=== PATIENT | female | born 1975 | race Caucasian/White ===

== ENCOUNTER 2018-11-25 10:26 | Emergency (ER) | payer SELFPAY ==
[2018-11-25] MEDS ORDERED: HYDROCODONE/CHLORPHEN 5 ML/OSYR ONE (10:48)
--- NOTE | 2018-11-25 11:06 | ER ---
Nurse's Notes [facility] Name: Iraida Chaudhary Age: 43 yrs Sex: Female : 1975 Arrival Date: 11/25/2018 Time: 10:28 Bed 12 Private MD: None, None Diagnosis: Acute upper respiratory infection, unspecified Presentation: 11/25 10:31 Presenting complaint: Patient states: cough, CACERES, congestion for one day. Transition of la1 care: patient was not received from another setting of care. Onset of symptoms was November 25, 2018. Risk Assessment: Do you want to hurt yourself or someone else? Patient reports no desire to harm self or others. Initial Sepsis Screen: Does the patient meet any 2 criteria? No. Patient's initial sepsis screen is negative. Does the patient have a suspected source of infection? No. Patient's initial sepsis screen is negative. Care prior to arrival: None. 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 - Social history:: Smoking status: Patient/guardian denies using tobacco. - Ebola Screening: : No symptoms or risks identified at this time. Screenin:54 Abuse screen: Denies threats or abuse. Nutritional screening: No deficits noted. la1 Tuberculosis screening: No symptoms or risk factors identified. Fall Risk None identified. Assessment: 10:53 General: Appears ill, Behavior is calm, cooperative. Pain: Complains of pain in la1 forehead. Neuro: Level of Consciousness is awake, alert, obeys commands, Oriented to person, place, time, situation. Cardiovascular: Capillary refill < 3 seconds Patient's skin is warm and dry. Respiratory: Airway is patent Respiratory effort is even, unlabored, Respiratory pattern is regular, symmetrical, Breath sounds are clear. Respiratory: Reports cough that is non-productive, persistent. GI: No signs and/or symptoms were reported involving the gastrointestinal system. : No signs and/or symptoms were reported regarding the genitourinary system. Vital Signs: 10:32 BP 130 / 80; Pulse 105; Resp 18; Temp 99.3; Pulse Ox 95% on R/A; Weight 108.86 kg; la1 Height 5 ft. 4 in. (162.56 cm); 10:32 Body Mass Index 41.20 (108.86 kg, 162.56 cm) la1 ED Course: 10:28 Patient arrived in ED. mr 10:29 None, None is Private Physician. mr 10:29 Shy Jaquez FNP-C is [facility]. kb 10:29 Jonny Schaffer MD is Attending Physician. kb 10:31 Triage completed. la1 10:32 Arm band placed on left wrist. la1 10:36 Tiffanie Lopez, RN is Primary Nurse. iw 10:54 Call light in reach. la1 11:14 No provider procedures requiring assistance completed. Patient did not have IV access iw during this emergency room visit. Administered Medications: 10:39 Drug: Tussionex Pennkinetic ER 5 ml Route: PO; iw Outcome: 11:05 Discharge ordered by . kb 11:14 Discharged to home ambulatory, with family. iw 11:14 Condition: good 11:14 Discharge instructions given to patient, Instructed on discharge instructions, follow up and referral plans. medication usage, Demonstrated understanding of instructions, follow-up care, medications, Prescriptions given X 1. 11:15 Patient left the ED. iw Signatures: Shy Jaquez FNP-C FNP-Ckb Rivera, Mary Tiffanie Lopez, RN RN iw Renan Roman RN RN la1
--- NOTE | 2018-11-25 11:07 | EDPHYS ---
Physician Documentation [facility] Name: Iraida Chaudhary Age: 43 yrs Sex: Female : 1975 Arrival Date: 11/25/2018 Time: 10:28 Bed 12 Private MD: None, None ED Physician Jonny Schaffer HPI: 11/25 10:36 This 43 yrs old Female presents to ER via Ambulatory with complaints of Flu kb Symptoms. 10:35 The patient has not experienced similar symptoms in the past, but co-worker has similar kb symptoms. The patient has not recently seen a physician. 10:36 The patient or guardian reports cough, that is intermittent, described as moderate, kb with no sputum, flu symptoms, arthralgias, myalgias, no appetite. Onset: The symptoms/episode began/occurred yesterday. Severity of symptoms: At their worst the symptoms were moderate, in the emergency department the symptoms are unchanged. Modifying factors: The symptoms are alleviated by nothing, the symptoms are aggravated by nothing. Associated signs and symptoms: The patient has no apparent associated signs or symptoms. 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 - Social history:: Smoking status: Patient/guardian denies using tobacco. - Ebola Screening: : No symptoms or risks identified at this time. ROS: 10:34 ENT: Negative for injury, pain, and discharge, Neck: Negative for injury, pain, and kb swelling, Cardiovascular: Negative for chest pain, palpitations, and edema, Abdomen/GI: Negative for abdominal pain, nausea, vomiting, diarrhea, and constipation, Back: Negative for injury and pain, : Negative for injury, bleeding, discharge, and swelling, MS/Extremity: Negative for injury and deformity, Skin: Negative for injury, rash, and discoloration, Neuro: Negative for headache, weakness, numbness, tingling, and seizure. 10:34 Constitutional: Positive for body aches, malaise, Negative for chills, fatigue, fever, poor PO intake, weight loss. 10:34 Respiratory: Positive for cough, with no reported sputum, Negative for dyspnea on exertion, hemoptysis, orthopnea, pleurisy, shortness of breath, sputum production, wheezing. Exam: 10:35 Constitutional: This is a well developed, well nourished patient who is awake, alert, kb and in no acute distress. Head/Face: Normocephalic, atraumatic. ENT: Nares patent. No nasal discharge, no septal abnormalities noted. Tympanic membranes are normal and external auditory canals are clear. Oropharynx with no redness, swelling, or masses, exudates, or evidence of obstruction, uvula midline. Mucous membranes moist. Neck: Trachea midline, no thyromegaly or masses palpated, and no cervical lymphadenopathy. Supple, full range of motion without nuchal rigidity, or vertebral point tenderness. No Meningismus. Chest/axilla: Normal chest wall appearance and motion. Nontender with no deformity. No lesions are appreciated. Cardiovascular: Regular rate and rhythm with a normal S1 and S2. No gallops, murmurs, or rubs. Normal PMI, no JVD. No pulse deficits. Respiratory: Lungs have equal breath sounds bilaterally, clear to auscultation and percussion. No rales, rhonchi or wheezes noted. No increased work of breathing, no retractions or nasal flaring. Abdomen/GI: Soft, non-tender, with normal bowel sounds. No distension or tympany. No guarding or rebound. No evidence of tenderness throughout. Skin: Warm, dry with normal turgor. Normal color with no rashes, no lesions, and no evidence of cellulitis. MS/ Extremity: Pulses equal, no cyanosis. Neurovascular intact. Full, normal range of motion. Neuro: Awake and alert, GCS 15, oriented to person, place, time, and situation. Cranial nerves II-XII grossly intact. Motor strength 5/5 in all extremities. Sensory grossly intact. Cerebellar exam normal. Normal gait. Vital Signs: 10:32 BP 130 / 80; Pulse 105; Resp 18; Temp 99.3; Pulse Ox 95% on R/A; Weight 108.86 kg; la1 Height 5 ft. 4 in. (162.56 cm); 10:32 Body Mass Index 41.20 (108.86 kg, 162.56 cm) la1 MDM: 10:29 Patient medically screened. kb 10:35 Data reviewed: vital signs, nurses notes. Data interpreted: Pulse oximetry: is 95 %. kb 11:01 Counseling: I had a detailed discussion with the patient and/or guardian regarding: the kb historical points, exam findings, and any diagnostic results supporting the discharge/admit diagnosis, lab results, the need for outpatient follow up, a family practitioner, to return to the emergency department if symptoms worsen or persist or if there are any questions or concerns that arise at home. 11/25 10:32 Order name: Strep; Complete Time: 11:00 la11/25 10:32 Order name: Flu; Complete Time: 11: la11/25 10:51 Order name: Throat Culture EDMS Administered Medications: 10:39 Drug: Tussionex Pennkinetic ER 5 ml Route: PO; iw Disposition: 18:49 Co-signature as Attending Physician, Jonny Schaffer MD Available for consultation at ps1 all times . Disposition: 11/25/18 11:05 Discharged to Home. Impression: Acute upper respiratory infection, unspecified. - Condition is Stable. - Discharge Instructions: Upper Respiratory Infection, Adult, [id number]. - Prescriptions for Albuterol Sulfate 90 mcg/actuation - inhale 1-2 puff by INHALATION route every 4-6 hours; 1 Inhaler. - Medication Reconciliation Form, Thank You Letter, Antibiotic Education, Prescription Opioid Use, Work release form form. - Follow up: Emergency Department; When: As needed; Reason: Worsening of condition. Follow up: Private Physician; When: 2 - 3 days; Reason: Recheck today's complaints, Continuance of care, Re-evaluation by your physician. Signatures: Dispatcher [employer] EDAR Shy Jaquez, DESTINEY-C DIAMOND DRILLER HELPER-Tiffanie Matamoros RN RN iw Attema, Lee, RN RN la1 Jonny Schaffer MD MD ps1 Corrections: (The following items were deleted from the chart) 11:15 11:05 11/25/2018 11:05 Discharged to Home. Impression: Acute upper respiratory iw infection, unspecified. Condition is Stable. Discharge Instructions: Upper Respiratory Infection, Adult, [id number]. Prescriptions for Tessalon Perles 100 mg Oral Capsule - take 1 capsule by ORAL route every 8 hours As needed; 15 capsule, Albuterol Sulfate 90 mcg/actuation - inhale 1-2 puff by INHALATION route every 4-6 hours; 1 Inhaler. and Forms are Medication Reconciliation Form, Thank You Letter, Antibiotic Education, Prescription Opioid Use. Follow up: Emergency Department; When: As needed; Reason: Worsening of condition. Follow up: Private Physician; When: 2 - 3 days; Reason: Recheck today's complaints, Continuance of care, Re-evaluation by your physician. kb
== END 2018-11-25 11:15 | disposition home or self-care (01) ==
LOC: ER 10:26
DX: J06.9 Acute upper respiratory infection, unspecified (principal)
CPT/HCPCS: 87070; 87081; 87804; 99283

== ENCOUNTER 2021-05-22 12:05 | Emergency (ER) | payer OTHER ==
--- OUTSIDE RECORDS SUMMARY | 2021-05-22 12:10 | XMS REPORT | Continuity of Care Document ---
:1975 Author Organization [facility] t Address [address] [place] [address] Care Team Providers Name Role Phone Doctor Unassigned, Name Attending Clinician Unavailable Ran FALL, L Attending Clinician Luis DOHERTY, K Attending Clinician Unavailable Jimy Rdz PT Attending Clinician Unavailable Payers Payer Name Policy Type Policy Number Effective Date Expiration Date Sriram king [facility] [id number] 2018 2028 [facility] SELF-PAYSELF- 00:00:00 23:59:59 PAY [id number] [id number] [place] [address] Problems Condition Condition Condition Status Onset Resolution Last Treating Co mments Source Name Details Category Date Date Treatment Clinician Date Prediabete Prediabete Disease Active H arris s s 04-20 Health 00:00: 00 Vitamin D Vitamin D Disease Active Marcos ris deficiency deficiency 04-20 He alth 00:00: 00 History of History of Disease Active Overview : [place] [facility] py py 00:00: g of this 00 note might be different from the original. Carbo/tax olCycle 1 06/23/16 Completed , had reaction during Taxol. Needs pre-chemo oral steroids for future chemosCyc le 2 07/14/16 Completed , no reaction reportedC ycle 3 08/04/16 completed [ ] Cycle 4 08/25/16 completed Cycle 5 09/15/16 completed Cycle 6 10/06/16 completed [ ] CHANDNI on imaging. Start Surveilla nce. Stage II Stage II Disease Active Overview: [place] endometrio endometrio 05-31 [facility] id ovarian id ovarian 00:00: g of this cancer cancer 00 note might be different from the original. 05/11/16: exlap, GINO, BSO, PPALND, omentecto my, staging bx 6 Tumor Board: stage IIA, Figo Stage 2. High grade ovarian carcinoma involving ovary, uterus, cervix, 11 negative lymph nodes. Omentum negative. Recommend : Taxol and Carbo. Pelvic Pelvic Disease Active [place] pain in pain in 6-13 Health female female 00:00: 00 Allergies, Adverse Reactions, Alerts Allergy Allergy Status Severity Reaction(s) Onset Inactive Treating Comm ents Source Name Type Date Date Clinician Terbinaf Propensi Active Patient Mago urrutia ty to 7-17 [facility] Health adverse 00:00: she reaction 00 cannot s to move drug after receiving lamisil. Lamisil Adverse Active can't walk [facility] Family History Family Member Diagnosis Comments Start Date Stop Date Source Natural mother Cancer [facility] Natural mother Other [facility] Natural mother Ovarian cancer [facility] Other Breast cancer [place] [facility] Natural sister Heart [facility] Natural brother Obesity [facility] Natural father Diabetes [facility] Natural father Hypertension [facility] Maternal grandfather Prostate cancer [facility] Social History Social Habit Start Date Stop Date Quantity Comments Source Sex Assigned At [facility] Tobacco use and 2018-07-07 2018-07-07 Former user [facility] exposure 00:00:00 00:00:00 Alcohol intake 2018-07-07 2018-07-07 Current [facility] 00:00:00 00:00:00 non-drinker of alcohol (finding) History of tobacco 2004-10-22 Current smoker [facility] use 00:00:00 Smoking Status Start Date Stop Date Source Former smoker 2018-07-07 00:00:00 2018-07-07 00:00:00 [facility] Medications Ordered Filled Start Stop Current Ordering Indication Dosage Frequency Signature Comments Components Source Medication Medication Date Date Medication? Clinician (SIG) Name Name Augmentin Augmentin 2020- No Ramona [address] [facility] 9-16 09-26 [facility] Glucose Glucose Yes Ramona as [facility] testing testing 8-12 [facility] directed [facility] - strips strips 00:00: (dispense Chet minda 00 testing l strips Outpati formulary ent to Clinics insurance) Metformin Metformin Yes Ramona [address] [facility] HCl HCl 8-12 Millender with a [facility] - 00:[facility]: meal [facility] 00 [facility] Blood Blood 2019- Yes Ramona as [facility] Glucose Glucose 8-12 [facility] directed [facility] - Monitor Monitor 00:00: (DISPENSE Me moria 00 BLOOD l GLUCOSE Outpati MONITOR ent FORMULARY Clinics TO INSURANCE) Lancets Lancets Yes Ramona as [facility] 8-12 [facility] directed [facility] - 00:[facility]: (dispense [facility] 00 lancets l formulary Outpati to ent insurance) Clinics Rosuvastati Rosuvastati Yes Ramona [address] [facility] n Calcium n Calcium 8-01 Millender in evening [facility] FLUoxetine Yes Moderate 60mg QD Take 3 H arris (PROZAC) 20 3-26 episode of capsules Health mg capsule 00:00: recurrent by mouth 00 major daily. depressive disorder multivit-ca 2016-10 Yes Take by [facility] lc-iron-FA- 0-16 mouth. Health K-hb#244 09:01: (ALIVE 55 WOMEN'S ENERGY) 18-400-80 mg-mcg-mcg Tab CINNAMON 2016-10 Yes Take by [employer] BARK 0-16 mouth. Health (CINNAMON 09:01: OR) 55 Cholecalcif 2016-10 Yes Take by [employer] veronica, 0-16 mouth. Health Vitamin D3, 09:01: 10,000 unit 54 cap acetaminoph 2015-10 Yes migraine 500mg Take 500 Price en 0-11 mg by Health (TYLENOL) 12:41: mouth 500 mg 49 once. tablet Belviq XR Belviq XR Yes Ramona [address] [facility] Millender [facility] ent Clinics Strips Strips Yes Ramona invitro [facility] testing [facility] ent [facility] Procedures This patient has no known procedures. Plan of Care Planned Activity Planned Date Details Comments Source Future Scheduled Test 2023-04-14 00:00:00 Screening for [facility] malignant neoplasm of cervix (procedure) [code = 683573202] Future Scheduled Test 2021-07-24 00:00:00 IMM Influenza [facility] Seasonal Jul to December (>/= 19 yrs) [code = IMM Influenza Seasonal Jul to December (>/= 19 yrs)] Future Scheduled Test 2017-12-03 00:00:00 [facility] (Yearly) [code = Breast Cancer [facility] (Yearly)] Future Scheduled Test 2004 00:00:00 Screening for [facility] malignant neoplasm of cervix (procedure) [code = 733073099] Future Scheduled Test 1986 00:00:00 COVID-19 Vaccine (1) [facility] [code = COVID-19 Vaccine (1)] Encounters Start End Encounter Admission Attending Care Care Encounter Source Date/Time Date/Time Type Type Clinicians Facility Department ID 2021-05-06 2021-05-06 Outpatient [facility] [id number] [facility] 00:00:00 00:00:00 [facility] 2021-04-16 2021-04-16 Orders Doctor DODGE [id number] 00:00:00 00:00:00 Only Unassigned, KAILEY [id number] [place] [facility] [id number] 2021-02-17 2021-02-17 Outpatient [facility] [id number] [facility] 00[facility]:00 [facility] ent Clinics 2021-02-13 2021-02-13 Ancillary SUHAS Smith [id number] 09:23:13 10:38:59 Visit Whit Martin [id number] [place] [id number] Professio [phone] nal 179 [facility] 2021-02-03 2021-02-03 Ancillary Luis [facility] [id number] 14:30:44 15:35:43 Visit Whit Martin [id number] [place] [id number] Professio [phone] nal 179 [facility] 2021-01-20 2021-01-20 Ancillary Luis [facility] [id number] 14:45:58 15:25:58 Visit Whit Martin [id number] [place] [id number] Professio [id number] [facility] 179 [facility] 2021-01-13 2021-01-13 Ancillary Jimy [facility] [id number] 13:10:27 13:57:11 Visit Mario Rdz [id number] Lisa [place] [id number] Professio [phone] 2020-12-31 2020-12-31 Outpatient [facility] [id number] [facility] 2020-12-30 2020-12-30 Out[facility] [id number] [facility] 2020-11-05 2020-11-05 Out[facility] [id number] [facility] 2020-10-21 2020-10-21 Out[facility] [id number] [facility] 2020-09-12 2020-09-12 Out[facility] [id number] [facility] 2020-09-09 2020-09-09 Out[facility] [id number] [facility] 2020-09-05 2020-09-05 Outpatient [facility] [id number] [facility]00 [facility] Outpati ent Clinics 2020-07-09 2020-07-09 [facility] [id number] 01:39:00 01:39:00 t [facility] l Medicine Outpati ent Clinics 2020-06-04 2020-06-04 [facility] [id number] 17:36:00 17:36:00 [facility] Medicine l Medicine Outpati ent Clinics 2020-06-04 2020-06-04 [facility] [id number] 15:54:00 15:54:00 [address] [facility] Medicine Outpati ent Clinics 2020-06-03 2020-06-03 [facility] [id number] 16:00:00 16:00:00 t [facility] Medicine Outpati ent Clinics 2020-02-29 2020-02-29 [facility] [id number] 16:03:00 16:03:00 t [facility] Medicine Outpati ent Clinics 2019-11-30 2019-11-30 [facility] [id number] 13:45:00 13:45:00 t [facility] Medicine Outpati ent Clinics 2019-08-30 2019-08-30 [facility] [id number] 15:00:00 15:00:00 t [facility] Medicine Outpati ent Clinics 2019-06-28 2019-06-28 [facility] [id number] 14:00:00 14:00:00 [facility] Medicine Outpati ent Clinics 2019-05-24 2019-05-24 [facility] [id number] 14:40:00 14:40:00 t [facility] Medicine Outpati ent Clinics 2019-04-25 2019-04-25 [facility] [id number] 13:05:00 13:05:00 [facility] l Medicine Outpati ent Clinics 2019-04-20 2019-04-20 [facility] [id number] 10:51:00 10:51:00 t [facility] Family Medicine l Medicine Outpati ent Clinics 2019-04-20 2019-04-20 [facility] [id number] 10:09:00 10:09[facility]00 [facility] 2019-04-20 2019-04-20 [facility] [id number] 10:00:00 10:00:00 [facility] Family Medicine l Medicine Outpati ent Clinics 2019-04-12 2019-04-12 [facility] [id number] 15:20:00 15:20:00 [facility] Family Medicine l Medicine Outpati ent Clinics 2018-10-06 2018-10-06 Outpatient [facility] [id number] [place] 00:00:00 00:00:00 Health 2018-07-28 2018-07-28 Outpatient [facility] [id number] [place] 00:00:00 00:00:00 [facility] 2018-07-07 2018-07-07 Outpatient [facility] [id number] [place] 08:56:44 08:56:44 Health 2018-04-14 2018-04-14 Outpatient [facility] [id number] [place] 09:19:28 09:19:28 Health 2018-03-06 2018-03-06 Outpatient [facility] [id number] [place] 00:00:00 00:00:00 Health 2018-02-27 2018-02-27 Outpatient [facility] [id number] [place] 00:00:00 00:00:00 Health 2018-02-06 2018-02-06 Outpatient [facility] [id number] [place] 08:35:49 08:35:49 Health 2018-01-16 2018-01-16 Outpatient [facility] [id number] [place] 10:36:49 10:36:49 Health 2018-01-16 2018-01-16 Outpatient [facility] [id number] [place] 07:58:58 07:58:58 [facility] 2018-01-03 2018-01-03 Outpatient [facility] [id number] [place] 00:00:00 00:00:00 [facility] 2017-12-19 2017-12-19 Outpatient [facility] [id number] [place] 00:00:00 00:00:00 [facility] 2017-12-06 2017-12-06 Outpatient [facility] [id number] [place] 14:59:57 14:59:57 [facility] 2017-11-15 2017-11-15 Outpatient [facility] [id number] [place] 14:31:51 14:31:51 [facility] 2017-10-31 2017-10-31 Outpatient [facility] [id number] [place] 11:30:56 11:30:56 [facility] 2017-10-31 2017-10-31 Outpatient [facility] [id number] [place] 09:41:49 09:41:49 [facility] 2017-10-18 2017-10-18 Outpatient [facility] [id number] [place] 14:03:20 14:03:20 [facility] 2017-09-06 2017-09-06 Outpatient [facility] [id number] [place] 10:12:14 10:12:14 [facility] 2017-08-08 2017-08-08 Outpatient [facility] [id number] [place] 10:16:16 10:16:16 [facility] 2017-08-08 2017-08-08 Outpatient [facility] [id number] [place] 08:28:43 08:28:43 [facility] 2017-06-07 2017-06-07 Outpatient [facility] [id number] [place] 00:00:00 00:00:00 [facility] 2017-06-06 2017-06-06 Outpatient [facility] [id number] [place] 00:00:00 00:00:00 [facility] 2017-05-16 2017-05-16 Outpatient [facility] [id number] Price 00:00:00 00:00:00 [facility] 2017-05-02 2017-05-02 Outpatient [facility] [id number] [place] 12:29:12 12:29:12 [facility] 2017-04-20 2017-04-20 Outpatient [facility] [id number] [place] 08:53:29 08:53:29 [facility] 2017-04-12 2017-04-12 Outpatient [facility] [id number] Price 15:01:16 15:01:16 [facility] 2017-04-12 2017-04-12 Outpatient [facility] [id number] [place] 14:16:23 14:16:23 Health Results This patient has no known results.
--- NOTE | 2021-05-22 12:49 | RAD REPORT ---
EXAM DESCRIPTION: CT - Head Brain Wo Cont - 05/22/2021 12:42 pm CLINICAL HISTORY: DIZZINESS COMPARISON: No comparisons TECHNIQUE: Axial 5 mm thick images of the head were obtained without IV contrast. All CT scans are performed using dose optimization technique as appropriate and may include automated exposure control or mA/KV adjustment according to patient size. FINDINGS: No intracranial hemorrhage, mass, edema or shift of mid-line structures. No acute infarcti on changes seen. No abnormal extra-axial fluid collections. Ventricles are normal. Mastoid air cells and visualized portions of the paranasal sinuses are clear of acute finding. Patchy mucosal thickening seen in the nasal passages. No acute bony findings. IMPRESSION: Negative non-contrast CT head examination for acute or significant finding.
[2021-05-22 13:40] LABS: Absolute Lymphocytes (CBC) 3.1 K/uL (0.7-4.9); Basophils % 1.1 % (0-1.3); Hematocrit 40.8 % (36.0-45.0); MPV 8.9 fL (7.6-11.3)
[2021-05-22 13:41] LABS: Protime INR 0.95
[2021-05-22 13:56] LABS: ALT/SGPT 34 U/L (12-78); AST/SGOT 15 U/L (15-37); Albumin 3.7 g/dL (3.4-5.0); Alkaline Phosphatase 104 U/L (45-117); BUN Blood Urea Nitrogen 9 mg/dL (7-18); Bicarbonate 28 mmol/L (21-32); Bilirubin Direct < 0.1 mg/dL (0-0.2); Bilirubin Total 0.3 mg/dL (0.2-1.0); Glucose Level 131 mg/dL (74-106); Magnesium 2.2 mg/dL (1.8-2.4); NT PRO-BNP 108 pg/mL (<125); Potassium 3.8 mmol/L (3.5-5.1); Protein, Total 7.5 g/dL (6.4-8.2); Sodium Level 141 mmol/L (136-145); Troponin (Emerg Dept Use Only) < 0.02 ng/mL (0.0-0.045)
--- NOTE | 2021-05-22 14:01 | RAD REPORT ---
EXAM DESCRIPTION: RAD - Chest Single View - 05/22/2021 1:49 pm CLINICAL HISTORY: dizziness, chest pain, dyspnea TECHNIQUE: AP portable chest image was obtained 05/22/2021 1:49 pm . FINDINGS: Lungs are clear. Heart and vasculature are normal. No measurable pleural effusion and no p neumothorax. No acute bony abnormality seen. No acute aortic findings suspected. IMPRESSION: No acute cardiopulmonary process.
[2021-05-22] MEDS ORDERED: ONDANSETRON 4 MG (ODT) TAB ONE (14:30)
[2021-05-22] MEDS ORDERED: MECLIZINE HCL 12.5 MG TAB ONE (14:30)
[2021-05-22] MEDS ORDERED: NA CHLORIDE 0.9% 500 ML ONE (14:30)
[2021-05-22 14:38] LABS: Urine Blood Negative (Negative); Urine Glucose Negative (Negative); Urine Protein Negative (Negative); Urine Specific Gravity 1.015 (1.005-1.030); Urine pH 5.5 (5.0-7.0)
--- NOTE | 2021-05-22 14:50 | RAD REPORT ---
EXAM DESCRIPTION: CT - Head angio - 05/22/2021 2:40 pm CLINICAL HISTORY: DIZZINESS TECHNIQUE: During dynamic enhancement using nonionic IV contrast, axial 1 millimeter thick images of the head were obtained. Sagittal and axial reconstruction images were generated using MIP technique and reviewed. All CT scans are performed using dose optimization technique as appropriate and may include automated exposure control or mA/KV adjustment according to patient size. COMPARISON: CT head same date FINDINGS: No aneurysm or vascular malformation identified. Major venous sinuses are patent. No stenosis, named branch occlusion, vasculitis or other significant vascular finding identifiable. IMPRESSION: Negative CT angio head examination.
--- NOTE | 2021-05-22 14:52 | RAD REPORT ---
EXAM DESCRIPTION: CT - Neck Angio - 05/22/2021 2:41 pm CLINICAL HISTORY: dizziness TECHNIQUE: During dynamic enhancement using nonionic IV contrast, axial 2 mm thick images of the nec k were obtained. Sagittal and axial reconstruction images were generated using MIP technique and revi ewed. All CT scans are performed using dose optimization technique as appropriate and may include automated exposure control or mA/KV adjustment according to patient size. COMPARISON: CT head same date and CT angio head same date FINDINGS: No aneurysm or vascular malformation identified. No carotid or vertebral dissection. No aortic arch or great vessel origin abnormality seen. Vertebral artery origins unremarkable as well . No stenosis, vasculitis or other significant carotid artery finding. No focal abnormality of either vertebral artery. Basilar artery is normal. IMPRESSION: Negative CT angio neck examination.
[2021-05-22 15:13] LABS: Urine Bacteria 20-50 /HPF (<20); Urine RBC <5 /HPF (NONE SEEN)
[2021-05-22] MEDS ORDERED: NA CHLORIDE 0.9% 1,000 ML ONE (16:25)
--- NOTE | 2021-05-22 17:05 | ER ---
Nurse's Notes [facility] Name: Iraida Chaudhary Age: 45 yrs Sex: Female : 1975 Arrival Date: 05/22/2021 Time: 12:08 Bed 23 Private MD: Elyse Del Valle Diagnosis: Dizziness and giddiness Presentation: 05/22 12:20 Chief complaint: Patient states: I feel dizzy and real weak. it started this morning tw2 and went away but now it is is back and i just dont feel right. spouse states "she has been through some cancer and is just tripping because she dont know whats going on". Coronavirus screen: At this time, the client does not indicate any symptoms associated with coronavirus-19. Ebola Screen: Patient denies travel to an Ebola-affected area in the 21 days before illness onset. Initial Sepsis Screen: Does the patient meet any 2 criteria? No. Patient's initial sepsis screen is negative. Does the patient have a suspected source of infection? No. Patient's initial sepsis screen is negative. Risk Assessment: Do you want to hurt yourself or someone else? Patient reports no desire to harm self or others. Onset of symptoms was May 22, 2021. 12:20 Method Of Arrival: Wheelchair tw2 12:20 Acuity: DAVIAN 3 tw2 Triage Assessment: 12:27 General: Appears uncomfortable, obese, Behavior is crying. Neuro: Reports dizziness. tw2 16:35 Pain: Denies pain. 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 - Social history:: Smoking status: Patient reports the use of cigarette tobacco products, smokes one-half pack cigarettes per day. Screenin:25 Abuse screen: Denies threats or abuse. Nutritional screening: No deficits noted. ap3 Tuberculosis screening: No symptoms or risk factors identified. Fall Risk None identified. Vital Signs: 12:20 BP 135 / 76; Pulse 76; Resp 17; Temp 97.9(TE); Pulse Ox 100% on R/A; tw2 15:26 BP 112 / 58; Pulse 74; Resp 18; Pulse Ox 100% on R/A; ap3 15:50 BP 99 / 66 Supine; Pulse 75 LA; ap3 15:55 BP 129 / 67 Sitting; Pulse 65; ap3 16:00 BP 128 / 76 Standing; Pulse 65; ap3 16:35 BP 128 / 76; Pulse 62; Pulse Ox 99% on R/A; ap3 ED Course: 12:08 Patient arrived in ED. mr 12:08 Elyse Del Valle MD is Private Physician. mr 12:23 Triage completed. tw2 12:27 Arm band placed on. tw2 12:41 Head Brain Wo Cont CT In Process Unspecified. EDMS 13:11 Nikolai Reynolds PA is PHCP. cp 13:11 Nikolai Michel MD is Attending Physician. cp 13:24 Karin Kumar RN is Primary Nurse. tr6 13:49 XRAY Chest (1 view) In Process Unspecified. EDMS 14:02 EKG done, by ED staff, reviewed by Nikolai RICE. dh3 14:31 Inserted saline lock: 18 gauge in right antecubital area, using aseptic technique. tr6 Blood collected. 14:41 CT Head Angio In Process Unspecified. EDMS 14:41 CT Neck Angio In Process Unspecified. EDMS 14:43 Urine Microscopic Only Sent. dh3 15:25 Patient has correct armband on for positive identification. Bed in low position. Call ap3 light in reach. Side rails up X2. Pulse ox on. NIBP on. Door closed. Noise minimized. 17:38 No provider procedures requiring assistance completed. IV discontinued, intact, ap3 bleeding controlled, No redness/swelling at site. Pressure dressing applied. Administered Medications: 14:11 Drug: Zofran (Ondansetron) 4 mg Route: PO; tr6 16:01 Follow up: Response: No adverse reaction; Nausea is decreased ap3 14:11 Drug: NS 0.9% 500 ml Route: IV; Rate: bolus; Site: right antecubital; tr6 17:39 Follow up: Response: No adverse reaction; IV Status: Completed infusion ap3 14:12 Drug: Meclizine 25 mg Route: PO; tr6 16:01 Follow up: Response: No adverse reaction; Nausea is decreased ap3 Outcome: 17:05 Discharge ordered by . cp 17:38 Discharged to home ambulatory, with family. ap3 17:38 Condition: good 17:38 Discharge instructions given to patient, Instructed on discharge instructions, follow up and referral plans. medication usage, Demonstrated understanding of instructions, follow-up care, medications, Prescriptions given X 2. 17:38 Patient left the ED. ap3 Signatures: Dispatcher [employer] EDSC VictorAmy Corey, PA PA cp Wise, Tara, RN RN tw2 Roxanne Muñoz 3 Bety Cain RN RN ap3 Karin Kumar RN RN tr6
--- NOTE | 2021-05-22 17:05 | EDPHYS ---
Physician Documentation [facility] Name: Iraida Chaudhary Age: 45 yrs Sex: Female : 1975 Arrival Date: 05/22/2021 Time: 12:08 Bed 23 Private MD: Elyse Del Valle ED Physician Nikolai Michel HPI: 05/22 13:20 This 45 yrs old Female presents to ER via Wheelchair with complaints of cp Dizziness, Feels like passing out. 13:20 The patient presents with dizziness, feeling faint, lightheadedness, feeling off cp balance, sense of spinning. Onset: The symptoms/episode began/occurred today. 13:20 Associated signs and symptoms: Pertinent positives: general weakness, Pertinent cp negatives: abdominal pain, chest pain, confusion, diaphoresis, focal weakness, headache, syncope. 13:20 Patient's baseline: Neuro: alert and fully oriented, Motor: no deficits, Ambulation: cp walks without assistance, Speech: normal. 13:20 Modifying factors: the symptoms are aggravated by movement of head, changing position, cp walking. 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 - Social history:: Smoking status: Patient reports the use of cigarette tobacco products, smokes one-half pack cigarettes per day. ROS: 13:25 Constitutional: Negative for body aches, chills, fever, poor PO intake. cp 13:25 Eyes: Negative for injury, pain, redness, and discharge. cp 13:25 ENT: Negative for ear pain, sore throat, difficulty swallowing, difficulty handling secretions. 13:25 Cardiovascular: Negative for chest pain, edema, palpitations. 13:25 Respiratory: Negative for cough, shortness of breath, wheezing. 13:25 Abdomen/GI: Negative for abdominal pain, vomiting, diarrhea, constipation. 13:25 : Negative for urinary symptoms. 13:25 Neuro: Positive for dizziness, weakness, Negative for altered mental status, loss of consciousness, numbness, syncope. 13:25 All other systems are negative. Exam: 13:30 Constitutional: The patient appears in no acute distress, alert, awake, cp non-diaphoretic, non-toxic, well developed, well nourished, obese. 13:30 Head/Face: Normocephalic, atraumatic. cp 13:30 Eyes: Periorbital structures: appear normal, Pupils: equal, round, and reactive to light and accomodation, Extraocular movements: intact throughout, Conjunctiva: normal, no exudate, no injection, Sclera: no appreciated abnormality, Lids and lashes: appear normal, bilaterally. 13:30 ENT: External ear(s): are unremarkable, Ear canal(s): are normal, clear, TM's: dullness, bilaterally, Nose: is normal, Mouth: Lips: moist, Oral mucosa: pink and intact, moist, Posterior pharynx: is normal, airway is patent, no erythema, no exudate. 13:30 Neck: ROM/movement: is normal, is supple, without pain, no range of motions limitations. 13:30 Chest/axilla: Inspection: normal, Palpation: is normal, no crepitus, no tenderness. 13:30 Cardiovascular: Rate: normal, Rhythm: regular, Heart sounds: murmur, not appreciated, Edema: is not appreciated, JVD: is not appreciated. 13:30 Respiratory: the patient does not display signs of respiratory distress, Respirations: normal, no use of accessory muscles, no retractions, labored breathing, is not present, Breath sounds: are clear throughout, no decreased breath sounds, no stridor, no wheezing. 13:30 Abdomen/GI: Inspection: abdomen appears normal, Palpation: abdomen is soft and non-tender, in all quadrants. 13:30 Back: pain, is absent, ROM is normal. 13:30 Neuro: Orientation: to person, place \T\ time. Mentation: is normal, Cerebellar function: Romberg testing is negative, normal finger to nose testing, Motor: moves all fours, strength is normal, Sensation: is normal. 13:57 ECG was reviewed by the Attending Physician. Vital Signs: 12:20 BP 135 / 76; Pulse 76; Resp 17; Temp 97.9(TE); Pulse Ox 100% on R/A; tw2 15:26 BP 112 / 58; Pulse 74; Resp 18; Pulse Ox 100% on R/A; ap3 15:50 BP 99 / 66 Supine; Pulse 75 LA; ap3 15:55 BP 129 / 67 Sitting; Pulse 65; ap3 16:00 BP 128 / 76 Standing; Pulse 65; ap3 16:35 BP 128 / 76; Pulse 62; Pulse Ox 99% on R/A; ap3 MDM: 13:14 Patient medically screened. morgan 13:30 Differential diagnosis: cardiac arrhythmia, generalized weakness, GI bleed, cp hypovolemia, idiopathic dizziness, TIA, vertigo. 17:05 Data reviewed: vital signs, nurses notes, lab test result(s), EKG, radiologic studies, cp CT scan. 17:05 Test interpretation: by ED physician or midlevel provider: ECG, plain radiologic cp studies. Counseling: I had a detailed discussion with the patient and/or guardian regarding: the historical points, exam findings, and any diagnostic results supporting the discharge/admit diagnosis, lab results, radiology results, to return to the emergency department if symptoms worsen or persist or if there are any questions or concerns that arise at home. Response to treatment: the patient's symptoms have markedly improved after treatment. ED course: VSS. Symptoms markedly improved. Patient observed ambulating w/o assistance while in ED. Will discharge to home for continued monitoring. 05/22 13:12 Order name: Basic Metabolic Panel 05/22 13:12 Order name: CBC with Diff; Complete Time: 14:59 05/22 15:01 Interpretation: Reviewed. 05/22 13:12 Order name: LFT's; Complete Time: 14:59 05/22 14:59 Interpretation: Normal except: GLOB 3.8; A/G 1.0. 05/22 13:12 Order name: Magnesium; Complete Time: 14:59 05/22 13:12 Order name: NT PRO-BNP; Complete Time: 14:59 05/22 13:12 Order name: PT-INR; Complete Time: 14:59 05/22 12:28 Order name: Head Brain Wo Cont CT; Complete Time: 13:11 iw 05/22 13:12 Order name: Troponin (emerg Dept Use Only); Complete Time: 14:59 cp 05/22 13:12 Order name: XRAY Chest (1 view); Complete Time: 14:59 cp 05/22 13:12 Order name: Urine Microscopic Only; Complete Time: 17:02 cp 05/22 17:02 Interpretation: Normal except: UBACT 20-50. cp 05/22 13:13 Order name: Basic Metabolic Panel; Complete Time: 14:59 EDMS 30 14:59 Interpretation: Normal except: GLUC 131; CL 108. cp 05/22 14:37 Order name: Urine Dipstick-Ancillary; Complete Time: 14:59 EDMS 05/22 14:45 Order name: CREATININE WHOLE BLOOD; Complete Time: 14:59 EDMS 05/22 15:15 Order name: Urine Culture EDMS 05/22 13:12 Order name: Orthostatics; Complete Time: 16:07 cp 05/22 13:12 Order name: EKG; Complete Time: 13:13 cp 05/22 13:12 Order name: Cardiac monitoring; Complete Time: 14:02 cp 05/22 13:12 Order name: EKG - Nurse/Tech; Complete Time: 14:02 cp 05/22 13:12 Order name: IV Saline Lock; Complete Time: 14:05 cp 05/22 13:12 Order name: Labs collected and sent; Complete Time: 13:33 cp 05/22 13:12 Order name: O2 Per Protocol; Complete Time: 13:33 cp 05/22 13:12 Order name: O2 Sat Monitoring; Complete Time: 13:33 cp 05/22 13:12 Order name: Urine Dipstick-Ancillary (obtain specimen); Complete Time: 14:43 cp 05/22 13:33 Order name: CT Head Angio; Complete Time: 14:59 cp 05/22 15:00 Interpretation: Report reviewed. cp 05/22 13:33 Order name: CT Neck Angio; Complete Time: 14:59 cp 05/22 15:00 Interpretation: Report reviewed. cp 05/22 16:19 Order name: Misc. Order: ambulate patient; Complete Time: 16:36 cp EC:57 Rate is 60 beats/min. Rhythm is regular. DE interval is normal. QRS interval is cp prolonged at 168 msec. QT interval is normal. T waves are Inverted in lead aVR. Interpreted by me. Reviewed by me. Administered Medications: 14:11 Drug: Zofran (Ondansetron) 4 mg Route: PO; tr6 16:01 Follow up: Response: No adverse reaction; Nausea is decreased ap3 14:11 Drug: NS 0.9% 500 ml Route: IV; Rate: bolus; Site: right antecubital; tr6 17:39 Follow up: Response: No adverse reaction; IV Status: Completed infusion ap3 14:12 Drug: Meclizine 25 mg Route: PO; tr6 16:01 Follow up: Response: No adverse reaction; Nausea is decreased ap3 Disposition Summary: 05/22/21 17:05 Discharge Ordered Location: Home cp Problem: new cp Symptoms: have improved cp Condition: Stable cp Diagnosis - Dizziness and giddiness cp Followup: cp - With: Private Physician - When: 2 - 3 days - Reason: Recheck today's complaints Discharge Instructions: - Discharge Summary Sheet cp - Dizziness cp - Vertigo cp Forms: - Medication Reconciliation Form cp - Thank You Letter cp - Antibiotic Education cp - Prescription Opioid Use cp - Work release form ap3 Prescriptions: - Meclizine 25 mg Oral Tablet - take 1 tablet by ORAL route every 8 hours As needed; 30 tablet; Refills: 0, cp Product Selection Permitted - Zofran 4 mg Oral Tablet - take 1 tablet by ORAL route every 12 hours As needed; 20 tablet; Refills: 0, cp Product Selection Permitted Addendum: 05/25/2021 06:47 Co-signature as Attending Physician, Nikolai Michel MD I agree with the assessment and c varner plan of care. Signatures: Dispatcher [employer] Nikolai Grady MD MD cha Page, Corey, PA PA cp Janeth Victor RN RN tw2 Karin Kumar RN RN tr6 Bety Cain RN ap3
[2021-05-22 17:50] VITALS: TEMP 97.9
[2021-05-22 18:09] VITALS: BP 128/76
[2021-05-22 18:11] VITALS: O2SAT 99
== END 2021-05-22 17:38 | disposition home or self-care (01) ==
LOC: ER 12:05
DX: R42 Dizziness and giddiness (principal); F17.210 Nicotine dependence, cigarettes, uncomplicated; E11.9 Type 2 diabetes mellitus without complications; Z85.43 Personal history of malignant neoplasm of ovary; Z79.84 Long term (current) use of oral hypoglycemic drugs
CPT/HCPCS: 96361; 87088; 85025; 87086; 80048; 36415; 83735; 85610; 82565; 80076; 87077; 87186; 84484; 83880; 70450; 70496; 70498; 71045; 96360; 99284; Q9967; J7040; J7030; 81003; 81015; 93005

== ENCOUNTER 2025-01-10 18:02 | Emergency (ER) | payer BC, OTHER, SELFPAY ==
[2025-01-10] MEDS ORDERED: predniSONE 20 MG TAB ONE (18:58)
--- NOTE | 2025-01-10 19:07 | ER ---
Nurse's Notes [facility] Name: Iraida Chaudhary Age: 49 yrs Sex: Female : 1975 Arrival Date: 01/10/2025 Time: 18:02 Bed IW7 Private MD: Diagnosis: poison kimberlyn Presentation: 01/10 19:01 Chief complaint: Patient states: poison kimberlyn on face and arms and legs since Tuesday. iw Coronavirus screen: At this time, the client does not indicate any symptoms associated with coronavirus-19. Ebola Screen: No symptoms or risks identified at this time. Initial Sepsis Screen: Does the patient meet any 2 criteria? No. Patient's initial sepsis screen is negative. Does the patient have a suspected source of infection?. Risk Assessment: Do you want to hurt yourself or someone else? Patient reports no desire to harm self or others. 19:01 Method Of Arrival: Ambulatory iw 19:01 Acuity: DAVIAN 4 iw Historical: - Allergies: 19:01 Lamisil; iw - PMHx: 19:01 diabetes mellitus; ovarian cancer; iw - PSHx: 19:01 Adenoid excision; hysterectomy; Left ear reconstruction; iw - Immunization history:: Adult Immunizations up to date. Screenin:11 [facility] ED Fall Risk Assessment (Adult) History of falling in the last 3 months, iw including since admission No falls in past 3 months (0 pts) Confusion or Disorientation No (0 pts) Intoxicated or Sedated No (0 pts) Impaired Gait No (0 pts) Mobility Assist Device Used No (0 pt) Altered Elimination No (0 pt) Score/Fall Risk Level 0 - 2 = Low Risk Oriented to surroundings. Abuse screen: Denies threats or abuse. Denies injuries from another. Nutritional screening: No deficits noted. Tuberculosis screening: No symptoms or risk factors identified. Assessment: 19:10 General: Appears in no apparent distress. Behavior is calm, cooperative. Pain: Denies iw pain. Neuro: Level of Consciousness is awake, alert, obeys commands, Oriented to person, place, time, situation, Moves all extremities. Full function. Cardiovascular: Patient's skin is warm and dry. Respiratory: Respiratory effort is even, unlabored, Respiratory pattern is regular. Derm: Rash noted that is itchy, red, urticaria, on face, chest, right arm and left arm. Musculoskeletal: Range of motion: intact in all extremities. Vital Signs: 19:01 BP 152 / 94; Pulse 83; Resp 16; Temp 98; Pulse Ox 100% on R/A; iw ED Course: 18:03 Patient arrived in ED. al6 18:41 Chapis Lopez MD is Attending Physician. sw6 19:01 Triage completed. iw 19:10 Tiffanie Atkins RN is Primary Nurse. br2 19:10 Primary Nurse role handed off by Tiffanie Atkins RN iw 19:10 Tiffanie Lopez, RN is Primary Nurse. iw 19:11 Patient has correct armband on for positive identification. Provided Education on: d/c. iw 19:11 No provider procedures requiring assistance completed. Patient did not have IV access iw during this emergency room visit. Administered Medications: 19:05 Drug: predniSONE PO 40 mg PO once Route: PO; iw 19:10 Follow up: Response: No adverse reaction iw Outcome: 19:07 Discharge ordered by . sw6 19:21 Discharged to home ambulatory, iw 19:21 Condition: good 19:21 Discharge instructions given to patient, Instructed on discharge instructions, follow up and referral plans. medication usage, Demonstrated understanding of instructions, follow-up care, medications, Prescriptions given X 1, 19:22 Patient left the ED. iw Signatures: Tiffanie Lopez RN RN Chapis Lopez MD MD [facility] Tiffanie Atkins RN RN Onelia Mcgrath al6
--- NOTE | 2025-01-10 19:07 | EDPHYS ---
Physician Documentation [facility] Name: Iraida Chaudhary Age: 49 yrs Sex: Female : 1975 Arrival Date: 01/10/2025 Time: 18:02 Bed IW7 Private MD: ED Physician Chapis Lopez HPI: 01/10 19:03 This 49 yrs old Female presents to ER via Ambulatory with complaints of Rash sw6 - POSION ANNEL. 19:03 The patient's rash thought to be caused by Poison annel. The rash is located on the body sw6 diffusely. The rash can be described as erythematous. Onset: The symptoms/episode began/occurred Tuesday. Today is .. Associated signs and symptoms: Pertinent positives: itching, Pertinent negatives: difficulty breathing, swelling of lips, swelling of throat, swelling of tongue. Treatment given at home: Benadryl. The patient has not recently seen a physician. The patient presents from home for evaluation for poison annel rash that has been getting worse since it started. She reports she was exposed to poison annel on Tuesday. The rash started on Tuesday. Today is and she reports it is spreading and is now on her face, chest, upper arms and her back. She did try Benadryl around noon today and reports it has not helped. No throat swelling. No trouble breathing. She denies the symptoms in the past. Here for evaluation.. Historical: - Allergies: 19:01 Lamisil; iw - PMHx: 19:01 diabetes mellitus; ovarian cancer; iw - PSHx: 19:01 Adenoid excision; hysterectomy; Left ear reconstruction; iw - Immunization history:: Adult Immunizations up to date. ROS: 19:03 Skin: Positive for rash, sw6 19:03 All other systems are negative, 19:11 Constitutional: Negative for fever, chills, and weight loss, sw6 Exam: 19:03 Constitutional: This is a well developed, well nourished patient who is awake, alert, sw6 and in no acute distress. Cardiovascular: Regular rate and rhythm with a normal S1 and S2. No gallops, murmurs, or rubs. Normal PMI, no JVD. No pulse deficits. Respiratory: Lungs have equal breath sounds bilaterally, clear to auscultation and percussion. No rales, rhonchi or wheezes noted. No increased work of breathing, no retractions or nasal flaring. Abdomen/GI: Soft, non-tender, with normal bowel sounds. No distension or tympany. No guarding or rebound. No evidence of tenderness throughout. Back: No spinal tenderness. No costovertebral tenderness. Full range of motion. 19:03 Skin: Erythematous and raised rash noted to her face, under her breast bilaterally as well as her upper arms that is consistent with poison annel.. Vital Signs: 19:01 BP 152 / 94; Pulse 83; Resp 16; Temp 98; Pulse Ox 100% on R/A; iw MDM: 19:01 Medical Screening Exam initiated sw6 19:03 Differential diagnosis: Poison annel. Data reviewed: vital signs, nurses notes. ED sw6 course: The patient presents from home for a poison annel rash that has been getting worse since it started on Tuesday. She was exposed to poison annel on Tuesday. Today is . She did have a dose of Benadryl around noon today and reports it has not helped. Will treat the patient with a long taper course of prednisone. She remained stable here in the ER and is okay for discharge home with PCP follow-up.. Administered Medications: 19:05 Drug: predniSONE PO 40 mg PO once Route: PO; iw 19:10 Follow up: Response: No adverse reaction iw Disposition Summary: 01/10/25 19:07 Discharge Ordered Notes: Location: Home sw6 Condition: Stable sw6 Diagnosis - poison annel sw6 Discharge Instructions: - Discharge Summary Sheet sw6 - Poison Annel Dermatitis sw6 - Poison Annel Dermatitis, [id number] sw6 Forms: - Work release form iw - Medication Reconciliation Form sw6 - Antibiotic Education sw6 - Prescription Opioid Use sw6 - Patient Portal Instructions sw6 - Leadership Thank You Letter sw6 Prescriptions: - PREDNISONE - take 10 milligram ORAL route as directed Take 4 tablets by mouth daily for 4 sw6 days then take 2 tablets by mouth daily for 4 days then take 1 tablet by mouth daily for 4 days then take 0.5 tablets by mouth daily for 4 days then stop.; 30 tablet; Refills: 0, Product Selection Permitted Signatures: Tiffanie Lopez RN RN iw John, Chapis, MD MD sw6
[2025-01-10 19:56] VITALS: BP 152/94; TEMP 98; O2SAT 100
== END 2025-01-10 19:22 | disposition home or self-care (01) ==
LOC: ER 18:02
DX: L23.7 Allergic contact dermatitis due to plants, except food (principal)
CPT/HCPCS: 99283; J7512